=== PATIENT | female | born 1965 | race Caucasian/White ===

== ENCOUNTER → 2021-12-16 | Outpatient (CLI) | payer BC | LOC: MC.RAD 14:07 | DX: Z12.31 Encounter for screening mammogram for malignant neoplasm of breast (principal) ==

== ENCOUNTER 2023-02-19 06:16 | Emergency (ER) | payer BC ==
[~2023-02-19] VITALS: Ht 2.5 cm; Wt 79.5 kg
[2023-02-19 06:24] VITALS: TEMP 98
[2023-02-19] MEDS ORDERED: SYNTHROID0.088 MG/T PO (06:31)
[2023-02-19] MEDS ORDERED: PROVIGIL200 MG PO (06:31)
[2023-02-19] MEDS ORDERED: WELLBUTRIN XL300 M1 PO (06:31)
[2023-02-19] MEDS ORDERED: LYRICA 150MG C150 MG PO (06:32)
[2023-02-19] MEDS ORDERED: LAMICTAL200 MG PO (06:32)
[2023-02-19] MEDS ORDERED: VIIBRYD40 MG PO (06:33)
[2023-02-19] MEDS ORDERED: VRAYLAR1.5 MG PO (06:33)
[2023-02-19] MEDS ORDERED: ZOCOR 20MG20 MG PO (06:34)
[2023-02-19] MEDS ORDERED: HCTZ12.5TAB PO (06:34)
[2023-02-19] MEDS ORDERED: TOPROL XL100 MG PO (06:34)
[2023-02-19] MEDS ORDERED: GLUCOPHAGE XR750 MG PO (06:35)
[2023-02-19] MEDS ORDERED: ASPIRIN 81M81 MG/TA2 PO (06:35)
[2023-02-19 07:00] LABS: BASO # 0.1 K/mm3 (0.0-0.2); BASO % 0.5 % (0.0-2.0); EOS % 0.2 % (0.0-4.0); GRAN # 10.3 K/mm3 (1.4-6.5); HEMATOCRIT 49.1 % (37.0-47.0); HEMOGLOBIN 17.5 g/dl (12.5-16.0); LYMPH # 1.9 K/mm3 (1.2-3.4); LYMPH % 14.3 % (20.0-51.0); MEAN CELL VOLUME 86 fl (80.0-100.0); MEAN CORPUSCULAR HEMOGLOBIN 31 pg (27-31); MEAN CORPUSCULAR HGB CONC 36 g/dl (33.0-37.0); MEAN PLATELET VOLUME 9.7 fl (7.4-10.4); MONO # 0.7 K/mm3 (0.1-0.6); MONO % 5.5 % (1.7-9.3); PLATELET COUNT 285 K/mm3 (130-400); RED BLOOD COUNT 5.74 M/mm3 (4.10-5.30); REDCELL DISTRIBUTION WIDTH-CV 13.2 % (11.5-14.5)
[2023-02-19 07:18] LABS: ALANINE AMINOTRANSFERASE 23 U/L (0-55); ALBUMIN 4.6 gm/dL (3.5-5.0); ALKALINE PHOSPHATASE 56 U/L (40-150); ANION GAP 15 mmol/L (7-16); AST,SGOT 18 U/L (5-34); BLOOD UREA NITROGEN 14 mg/dL (10-20); CALCIUM 10.2 mg/dL (8.4-10.2); CARBON DIOXIDE 19 mmol/L (22-29); CHLORIDE 103 mmol/L (98-107); CREATININE, serum 0.84 mg/dL (0.57-1.11); GLUCOSE 135 mg/dL (70-99); MAGNESIUM 2.2 mg/dL (1.6-2.6); POTASSIUM 3.8 mmol/L (3.5-4.5); SODIUM 137 mmol/L (136-145); TOTAL PROTEIN 7.7 gm/dL (6.2-8.1)
[2023-02-19 07:20] LABS: ALCOHOL(ethanol),MEDICAL < 10 mg/dL (0-10)
[2023-02-19 08:38] VITALS: BP 14/84; PULSE 88
== END 2023-02-19 08:38 | disposition home or self-care (01) ==
LOC: COL.ER 06:16
PROVIDERS: Emergency Medicine
DX: F41.9 Anxiety disorder, unspecified (principal); R11.2 Nausea with vomiting, unspecified
CPT/HCPCS: J2060; J2405; J7030